=== PATIENT | female | born 1970 | race Caucasian/White ===

== ENCOUNTER → 2017-06-21 | Outpatient (CLI) | payer OTHER ==
[~2017-06-21] MED LIST: ALBU90OI; ASPI325; AZIT250 PO; Ambien10 MG PO; BENZ100A PO; CEPH500 PO; DULERA 200 MCG/13 GM INH; ERGO50000 PO; FLUO20; FLUO20 PO; FLUT220OIA; FURO20 PO; HINGED KNEE SUPPORT; HYDACE5; HYDACE5 PO; HYDCHL25 PO; HYDGUAL120 PO; IBUP600 PO; IBUP800; IBUP800 PO; INDO50 PO; LEVFLO500 PO; LISI20; Lasix20 MG PO; METH5; MUPI2TO TOP; NAPR500 PO; Naprosyn500 MG PO; OMEP40CA12 PO; ONDA4ODT MM; PHENA200 PO; PIOG15; PIRO20; POTA10T PO; PRED20 PO; PROACE100; Prozac20 MG PO; Prozac40 MG PO; RANI150 PO; RXHYDGUAS PO; RXPHEN200 PO; RXPROM25 PO; RXSULTRIDS PO; SULTRIDS PO; ZOLP10 PO; Zantac150 MG PO
== END | disposition home or self-care (01) ==
LOC: LAB SHORT 11:25 → LAB 11:25
DX: N39.0 Urinary tract infection, site not specified (principal)
CPT/HCPCS: 87077; 87086; 87186

== ENCOUNTER → 2017-09-24 | Outpatient (CLI) | payer OTHER ==
[2017-09-24 10:17] LABS: Source, Urine Clean Catch
[2017-09-24 13:11] LABS: Appearance, Urine Cloudy (Clear); Bilirubin, Urine Neg (Neg); Blood, Urine 5+ (Neg); Color, Urine Yellow (P-Yellow); Glucose Qualitative, Urine Neg (Neg); Ketones, Urine Neg (Neg); Leukocyte Esterase, Urine 2+ (Neg); Nitrite, Urine Neg (Neg); Protein, Urine 1+ (Neg); Urobilinogen, Urine NORM (Normal)
[2017-09-24 13:28] LABS: Bacteria Many /hpf; Red Blood Cells, Urine TNTC /hpf (0-2); Squamous Epithelial Cells Mod /hpf (Few); Triple Phosphate Crystals Few /hpf; White Blood Cells, Urine TNTC /hpf (0-5)
== END ==
LOC: LAB SHORT 10:14 → LAB 10:14
PROVIDERS: Registered Nurse
DX: M54.9 Dorsalgia, unspecified (principal); N39.0 Urinary tract infection, site not specified
CPT/HCPCS: 81001; 87077; 87086; 87186

== ENCOUNTER 2017-11-10 12:47 | Emergency (ER) | payer OTHER ==
[~2017-11-10] VITALS: Ht 152.4 cm; Wt 124.7 kg
[2017-11-10 13:41] LABS: Source, Urine Clean Catch
[2017-11-10 13:45] LABS: BASOPHILS ABSOLUTE AUTO 0.02 K/mm3 (0.00-0.23); BASOPHILS PERCENT AUTO 0 % (0-2); EOSINOPHILS ABSOLUTE AUTO 0.01 K/mm3 (0.00-0.68); EOSINOPHILS PERCENT AUTO 0 % (0-6); Hematocrit 38.7 % (33.0-51.0); Hemoglobin 12.7 g/dL (11.5-16.0); IMMATURE GRAN ABSOLUTE AUTO 0.09 K/mm3 (0.00-0.10); IMMATURE GRAN PERCENT AUTO 1 % (0-1); LYMPHOCYTES ABSOLUTE AUTO 0.59 K/mm3 (0.84-5.20); LYMPHOCYTES PERCENT AUTO 3 % (21-46); MONOCYTES ABSOLUTE AUTO 1.53 K/mm3 (0.16-1.47); MONOCYTES PERCENT AUTO 8 % (4-13); Mean Corpuscular HGB Conc 32.8 g/dL (31.5-36.5); Mean Corpuscular Volume 91 fL (80-100); Mean Platelet Volume 10.3 fL (9.1-12.4); NEUTROPHILS ABSOLUTE AUTO 16.59 K/mm3 (1.96-9.15); NEUTROPHILS PERCENT AUTO 88 % (41-73); Platelet Count 256 K/mm3 (150-400); RDW Coefficient Variation 13.7 % (11.7-14.2); RDW Standard Deviation 46.2 fL (35.1-46.3); Red Blood Cell Count 4.24 M/mm3 (3.80-5.20); White Blood Cell Count 18.83 K/mm3 (4.00-11.30)
[2017-11-10 13:46] LABS: Appearance, Urine Cloudy (Clear); Bilirubin, Urine Neg (Neg); Blood, Urine 4+ (Neg); Color, Urine Yellow (P-Yellow); Glucose Qualitative, Urine Neg (Neg); Ketones, Urine Neg (Neg); Leukocyte Esterase, Urine 3+ (Neg); Nitrite, Urine Pos (Neg); Protein, Urine 2+ (Neg); Urobilinogen, Urine 1+ (Normal)
[2017-11-10 14:01] LABS: Alanine Aminotransfer (ALT/SGP 22 U/L (12-78); Albumin, Blood 3.4 g/dL (3.4-5.0); Albumin/Globulin Ratio 0.8 (0.8-1.8); Alk Phos 130 U/L (50-136); Anion Gap 12 mmol/L (6-16); Aspartate Aminotrans (AST/SGOT 15 U/L (12-37); Bilirubin, Total 0.6 mg/dL (0.1-1.0); Blood Urea Nitrogen 9 mg/dL (8-24); Bun/Creatinine Ratio 12.2 (12.0-20.0); CO2, Blood 21 mmol/L (21-32); Calcium, Blood 8.4 mg/dL (8.5-10.1); Chloride, Blood 101 mmol/L (98-108); Creatinine, Blood 0.74 mg/dL (0.40-1.00); Globulin, Blood 4.5 g/dL (2.2-4.0); Glomerular Filtration Rate >60 (60-); Glucose, Blood 111 mg/dL (70-99); Potassium, Blood 3.2 mmol/L (3.5-5.5); Sodium, Blood 134 mmol/L (136-145); Total Protein, Blood 7.9 g/dL (6.4-8.2)
[2017-11-10 14:01] LABS: Bacteria Many /hpf; Squamous Epithelial Cells Many /hpf (Few); White Blood Cells, Urine TNTC /hpf (0-5)
[2017-11-10] MEDS ORDERED: MELO7.5 (14:17)
[2017-11-10] MEDS ORDERED: FOLI400 PO (14:17)
[2017-11-10] MEDS ORDERED: BUDE6HFA INH (14:17)
[2017-11-10] MEDS ORDERED: Ventolin/Prove6.7 GM INH (14:18)
[2017-11-10] MEDS ORDERED: Prednisone20 MG PO (16:07)
== END 2017-11-10 16:12 | disposition home or self-care (01) ==
LOC: ER 12:47
PROVIDERS: Internal Medicine
DX: J45.901 Unspecified asthma with (acute) exacerbation (principal); I10 Essential (primary) hypertension; F32.9 Major depressive disorder, single episode, unspecified; J44.9 Chronic obstructive pulmonary disease, unspecified; F17.200 Nicotine dependence, unspecified, uncomplicated; Z79.899 Other long term (current) drug therapy
CPT/HCPCS: 36415; 71046; 80053; 81001; 85025; 87077; 87086; 87186; 94640; 94644; 96374; 99284-25; J2930

== ENCOUNTER → 2018-05-12 | Outpatient (CLI) | payer OTHER ==
[~2018-05-12] MED LIST changes: +BUDE6HFA INH; +FOLI400 PO; +MELO7.5; +Prednisone20 MG PO; +Ventolin/Prove6.7 GM INH
[2018-05-13 09:31] LABS: Candida species (DNA Probe) Negative (NEGATIVE); G. vaginalis (DNA Probe) Positive (NEGATIVE); T. vaginalis (DNA Probe) Positive (NEGATIVE)
[2018-05-14 14:08] LABS: HPV 16 Negative (Negative); HPV 18 Negative (Negative); HPV OTHER HR TYPES Negative (Negative)
== END ==
LOC: LAB SHORT 13:26 → LAB 13:26
PROVIDERS: Nurse Practitioner Family
DX: Z01.411 Encounter for gynecological examination (general) (routine) with abnormal findings (principal); Z12.4 Encounter for screening for malignant neoplasm of cervix; N89.8 Other specified noninflammatory disorders of vagina
CPT/HCPCS: 87480; 87510; 87624; 87660; G0145

== ENCOUNTER → 2018-07-28 | Outpatient (CLI) | payer OTHER ==
[2018-07-28 18:30] LABS: Source, Urine Voided
[2018-07-28 18:56] LABS: Appearance, Urine Cloudy (Clear); Bilirubin, Urine Neg (Neg); Blood, Urine 4+ (Neg); Color, Urine Yellow (P-Yellow); Glucose Qualitative, Urine Neg (Neg); Ketones, Urine Neg (Neg); Leukocyte Esterase, Urine 3+ (Neg); Nitrite, Urine Neg (Neg); Protein, Urine 1+ (Neg); Specific Gravity, Urine 1.015 (1.003-1.022); Urobilinogen, Urine NORM (Normal)
[2018-07-28 19:09] LABS: Bacteria Many /hpf; Red Blood Cells, Urine 0-2 /hpf (0-2); Squamous Epithelial Cells Few /hpf (Few)
== END ==
LOC: LAB SHORT 18:28 → LAB 18:28
PROVIDERS: Nurse Practitioner Family
DX: R82.90 Unspecified abnormal findings in urine (principal)
CPT/HCPCS: 81001; 87077; 87086; 87186

== ENCOUNTER → 2019-07-21 | Outpatient (CLI) | payer OTHER ==
[~2019-07-21] MED LIST changes: +FUROSEMIDE20 MG PO; +FUROSEMIDE40 MG PO; +VITAMIN D3125 MCG
[2019-07-21 17:34] LABS: Bilirubin, Urine Neg (Neg); Blood, Urine 3+ (Neg); Glucose Qualitative, Urine Neg (Neg); Ketones, Urine Neg (Neg); Leukocyte Esterase, Urine 3+ (Neg); Nitrite, Urine Pos (Neg); Protein, Urine Neg (Neg); Specific Gravity, Urine 1.015 (1.003-1.022); Urobilinogen, Urine NORM (Normal); pH, Urine 6.5 (5.0-8.0)
[2019-07-21 18:00] LABS: Appearance, Urine Hazy (Clear); Color, Urine Yellow (P-Yellow)
[2019-07-21 18:02] LABS: Bacteria Many /hpf; Squamous Epithelial Cells Mod /hpf (Few)
== END | disposition home or self-care (01) ==
LOC: LAB SHORT 17:28 → LAB 17:28
PROVIDERS: Nurse Practitioner Family
DX: N39.0 Urinary tract infection, site not specified (principal)
CPT/HCPCS: 81001; 87077; 87086; 87186

== ENCOUNTER → 2019-11-26 | Outpatient (CLI) | payer OTHER | END | disposition home or self-care (01) | LOC: LAB 17:28 → LAB SHORT 17:28 | DX: N30.00 Acute cystitis without hematuria (principal) | CPT/HCPCS: 87077; 87086; 87186 ==

== ENCOUNTER → 2020-03-02 | Outpatient (CLI) | payer OTHER ==
[2020-03-02 08:27] LABS: Source, Urine Clean Catch
[2020-03-02 12:26] LABS: Appearance, Urine Hazy (Clear); Bilirubin, Urine Neg (Neg); Blood, Urine Neg (Neg); Color, Urine Yellow (P-Yellow); Glucose Qualitative, Urine Neg (Neg); Ketones, Urine Neg (Neg); Leukocyte Esterase, Urine 1+ (Neg); Nitrite, Urine Pos (Neg); Protein, Urine 1+ (Neg); Urobilinogen, Urine 1+ (Normal)
[2020-03-02 12:40] LABS: Red Blood Cells, Urine 0-2 /hpf (0-2)
[2020-03-02 12:41] LABS: Amorphous Heavy (0-Heavy); Bacteria Many /hpf; Squamous Epithelial Cells Few /hpf (Few); Triple Phosphate Crystals Mod /hpf; Yeast/Fungi Urine Few /hpf
== END | disposition home or self-care (01) ==
LOC: LAB 08:12
PROVIDERS: Student in an Organized Health Care Education/Training Program
DX: R35.0 Frequency of micturition (principal)
CPT/HCPCS: 81001; 87077; 87086; 87186

== ENCOUNTER → 2020-06-20 | Outpatient (CLI) | payer OTHER | END | disposition home or self-care (01) | LOC: LAB SHORT 11:00 → LAB 11:00 | DX: R30.0 Dysuria (principal) | CPT/HCPCS: 87077; 87086; 87186 ==

== ENCOUNTER → 2020-12-08 | Outpatient (CLI) | payer OTHER | END | disposition home or self-care (01) | LOC: LAB 09:00 → LAB SHORT 09:00 | DX: N30.00 Acute cystitis without hematuria (principal) | CPT/HCPCS: 87077; 87086; 87186 ==

== ENCOUNTER → 2021-01-30 | Outpatient (CLI) | payer OTHER | END | disposition home or self-care (01) | LOC: LAB 11:50 → LAB SHORT 11:50 | DX: R30.0 Dysuria (principal) | CPT/HCPCS: 87077; 87086; 87186 ==

== ENCOUNTER 2022-05-27 21:26 | Emergency (ER) | payer OTHER ==
[~2022-05-27] VITALS: Ht 152.4 cm; Wt 158.8 kg
[~2022-05-27 21:26] MED LIST changes: +NITR100CA PO
[2022-05-27 23:19] LABS: BASOPHILS ABSOLUTE AUTO 0.04 K/mm3 (0.00-0.23); BASOPHILS PERCENT AUTO 0 % (0-2); EOSINOPHILS ABSOLUTE AUTO 0.13 K/mm3 (0.00-0.68); EOSINOPHILS PERCENT AUTO 1 % (0-6); Hematocrit 37.1 % (33.0-51.0); Hemoglobin 11.9 g/dL (11.5-16.0); IMMATURE GRAN ABSOLUTE AUTO 0.05 K/mm3 (0.00-0.10); IMMATURE GRAN PERCENT AUTO 0 % (0-1); LYMPHOCYTES ABSOLUTE AUTO 1.28 K/mm3 (0.84-5.20); LYMPHOCYTES PERCENT AUTO 10 % (21-46); MONOCYTES ABSOLUTE AUTO 1.14 K/mm3 (0.16-1.47); MONOCYTES PERCENT AUTO 9 % (4-13); Mean Corpuscular HGB 29.7 pg (26.0-34.0); Mean Corpuscular HGB Conc 32.1 g/dL (31.5-36.5); Mean Corpuscular Volume 93 fL (80-100); Mean Platelet Volume 10.5 fL (9.1-12.4); NEUTROPHILS ABSOLUTE AUTO 9.67 K/mm3 (1.96-9.15); NEUTROPHILS PERCENT AUTO 79 % (41-73); Platelet Count 276 K/mm3 (150-400); RDW Coefficient Variation 14.9 % (11.7-14.2); RDW Standard Deviation 51.3 fL (35.1-46.3); Red Blood Cell Count 4.01 M/mm3 (3.80-5.20); White Blood Cell Count 12.31 K/mm3 (4.00-11.30)
[2022-05-27 23:36] LABS: Albumin, Blood 2.8 g/dL (3.4-5.0); Albumin/Globulin Ratio 0.6 (0.8-1.8); Bilirubin, Total 0.9 mg/dL (0.1-1.0); Bun/Creatinine Ratio 12.3 (12.0-20.0); Calcium, Blood 8.7 mg/dL (8.5-10.1); Creatinine, Blood 0.81 mg/dL (0.40-1.00); Globulin, Blood 4.6 g/dL (2.2-4.0); Potassium, Blood 3.9 mmol/L (3.5-5.5); Total Protein, Blood 7.4 g/dL (6.4-8.2)
[2022-05-28] MEDS ORDERED: Cyclobenzaprine5 MG (00:04)
[2022-05-28] MEDS ORDERED: MONT10T PO (00:05)
[2022-05-28] MEDS ORDERED: NEURONTIN300 MG PO (00:05)
[2022-05-28] MEDS ORDERED: OMEP20ER PO (00:05)
[2022-05-28 00:07] LABS: Source, Urine Foley catheter
[2022-05-28 00:15] LABS: Bilirubin, Urine Neg (Neg); Blood, Urine 5+ (Neg); Glucose Qualitative, Urine Neg (Neg); Ketones, Urine Neg (Neg); Leukocyte Esterase, Urine 3+ (Neg); Nitrite, Urine Neg (Neg); Protein, Urine Neg (Neg); Urobilinogen, Urine NORM (Normal)
[2022-05-28 00:21] LABS: Appearance, Urine Hazy (Clear); Color, Urine Yellow (P-Yellow)
[2022-05-28 00:22] LABS: Bacteria Mod /hpf; Red Blood Cells, Urine 0-2 /hpf (0-2); Squamous Epithelial Cells Mod /hpf (Few)
[2022-05-28 00:54] LABS: Influenza A, PCR NEGATIVE (NEGATIVE); Influenza B, PCR NEGATIVE (NEGATIVE); Resp Syncytial Virus, PCR NEGATIVE (NEGATIVE); SARS-Cov-2 (COVID-19) PCR, MMC NEGATIVE (NEGATIVE)
[2022-05-28] MEDS ORDERED: CEPH500 PO (01:54)
== END 2022-05-28 03:33 | disposition home or self-care (01) ==
LOC: ER 21:26
PROVIDERS: Emergency Medicine
DX: N12 Tubulo-interstitial nephritis, not specified as acute or chronic (principal); I10 Essential (primary) hypertension; J44.9 Chronic obstructive pulmonary disease, unspecified; Z87.891 Personal history of nicotine dependence; Z20.822 Contact with and (suspected) exposure to COVID-19; Z79.899 Other long term (current) drug therapy
CPT/HCPCS: 0241U; 36415; 51702; 71045; 80053; 81001; 85025; 87086; 96365; 99284-25; J0696; J7030

== ENCOUNTER 2022-07-29 15:15 | Emergency (ER) | payer OTHER ==
[~2022-07-29] VITALS: Ht 152.4 cm; Wt 158.8 kg
[~2022-07-29 15:15] MED LIST changes: +Cyclobenzaprine5 MG; +MONT10T PO; +NEURONTIN300 MG PO; +OMEP20ER PO
[2022-07-29 15:28] VITALS: BP 156/87
[2022-07-29 16:26] LABS: Source, Urine Foley catheter
[2022-07-29 16:32] LABS: Bilirubin, Urine Neg (Neg); Blood, Urine 5+ (Neg); Glucose Qualitative, Urine Neg (Neg); Ketones, Urine Neg (Neg); Leukocyte Esterase, Urine 3+ (Neg); Nitrite, Urine Pos (Neg); Protein, Urine 3+ (Neg); Specific Gravity, Urine 1.015 (1.003-1.022); Urobilinogen, Urine NORM (Normal)
[2022-07-29] MEDS ORDERED: SULTRIDS PO (16:36)
[2022-07-29] MEDS ORDERED: CEFD300 PO (16:36)
[2022-07-29 16:42] LABS: Appearance, Urine Cloudy (Clear); Color, Urine Pale Yellow (P-Yellow)
[2022-07-29 16:43] LABS: Red Blood Cells, Urine 25-50 /hpf (0-2); White Blood Cells, Urine 50-100 /hpf (0-5)
[2022-07-29 16:44] LABS: Bacteria Many /hpf; Hyaline Casts 0-2 /lpf (0-2); Squamous Epithelial Cells Mod /hpf (Few)
== END 2022-07-29 16:48 | disposition home or self-care (01) ==
LOC: ER 15:15
PROVIDERS: Emergency Medicine
DX: N39.0 Urinary tract infection, site not specified (principal); I10 Essential (primary) hypertension; J44.9 Chronic obstructive pulmonary disease, unspecified; Z79.899 Other long term (current) drug therapy; Z87.891 Personal history of nicotine dependence
CPT/HCPCS: 81001; 87086; 99283; A9270

== ENCOUNTER 2022-08-23 20:27 | Emergency (ER) | payer OTHER ==
[~2022-08-23] VITALS: Ht 152.4 cm; Wt 158.8 kg
[~2022-08-23 20:27] MED LIST changes: +Aspir 8181 MG PO; +BUMETANIDE2 M6 PO; +CEFD300 PO
[2022-08-23 23:45] VITALS: BP 150/72
== END 2022-08-23 23:45 | disposition home or self-care (01) ==
LOC: ER 20:27
DX: T83.031A Leakage of indwelling urethral catheter, initial encounter (principal); J45.909 Unspecified asthma, uncomplicated; I10 Essential (primary) hypertension; Z79.82 Long term (current) use of aspirin; Z79.899 Other long term (current) drug therapy; Z87.891 Personal history of nicotine dependence; X58.XXXA Exposure to other specified factors, initial encounter
CPT/HCPCS: 99283

== ENCOUNTER 2023-07-20 18:08 | Emergency (ER) | payer OTHER ==
[~2023-07-20] VITALS: Ht 152.4 cm; Wt 153.8 kg
[2023-07-20 19:18] VITALS: BP 138/89
== END 2023-07-20 20:50 | disposition home or self-care (01) ==
LOC: ER 18:08
DX: T83.038A Leakage of other urinary catheter, initial encounter (principal); Z79.899 Other long term (current) drug therapy; I10 Essential (primary) hypertension; M19.90 Unspecified osteoarthritis, unspecified site; G47.30 Sleep apnea, unspecified; J44.9 Chronic obstructive pulmonary disease, unspecified; E66.01 Morbid (severe) obesity due to excess calories; Z87.891 Personal history of nicotine dependence
CPT/HCPCS: 51702; 99283-25

== ENCOUNTER 2023-11-23 13:53 | Emergency (ER) | payer OTHER ==
[~2023-11-23] VITALS: Ht 152.4 cm; Wt 155.6 kg
[2023-11-23 14:05] VITALS: BP 157/93
[2023-11-23 16:03] LABS: Source, Urine Foley catheter
[2023-11-23 16:05] LABS: Bilirubin, Urine Neg (Neg); Blood, Urine Neg (Neg); Color, Urine Yellow (P-Yellow); Glucose Qualitative, Urine Neg (Neg); Ketones, Urine Neg (Neg); Leukocyte Esterase, Urine 2+ (Neg); Nitrite, Urine Pos (Neg); Protein, Urine Neg (Neg); Urobilinogen, Urine NORM (Normal)
[2023-11-23 16:11] LABS: Appearance, Urine Hazy (Clear)
[2023-11-23 16:12] LABS: Bacteria Many /hpf; Red Blood Cells, Urine 0-2 /hpf (0-2); Squamous Epithelial Cells Few /hpf (Few)
[2023-11-23 16:13] LABS: Amorphous Light (0-Heavy)
[2023-11-23] MEDS ORDERED: Cefdinir 300 MG Cap PO ONE (16:20)
[2023-11-23] MEDS ORDERED: CEFD300 PO (16:28)
== END 2023-11-23 16:52 | disposition home or self-care (01) ==
LOC: ER 13:53
PROVIDERS: Student in an Organized Health Care Education/Training Program
DX: T83.021A Displacement of indwelling urethral catheter, initial encounter (principal); N39.0 Urinary tract infection, site not specified; Z79.899 Other long term (current) drug therapy; I10 Essential (primary) hypertension; J44.9 Chronic obstructive pulmonary disease, unspecified; G47.30 Sleep apnea, unspecified; E66.01 Morbid (severe) obesity due to excess calories; Z87.891 Personal history of nicotine dependence
CPT/HCPCS: 51702; 81001; 87077; 87086; 87186; 99283-25; A9270

== ENCOUNTER 2024-03-29 15:15 | Emergency (ER) | payer OTHER ==
[~2024-03-29] VITALS: Ht 152.4 cm; Wt 156.5 kg
[2024-03-29 15:34] VITALS: BP 116/73
[2024-03-29 15:59] LABS: Source, Urine Clean Catch
[2024-03-29 16:04] LABS: Appearance, Urine Turbid (Clear); Bilirubin, Urine Neg (Neg); Blood, Urine 5+ (Neg); Color, Urine Yellow (P-Yellow); Glucose Qualitative, Urine Neg (Neg); Ketones, Urine Neg (Neg); Leukocyte Esterase, Urine 3+ (Neg); Nitrite, Urine Neg (Neg); Protein, Urine 3+ (Neg); Urobilinogen, Urine 1+ (Normal)
[2024-03-29 16:12] LABS: Bacteria Many /hpf; Red Blood Cells, Urine 25-50 /hpf (0-2); Squamous Epithelial Cells Many /hpf (Few); White Blood Cells, Urine TNTC /hpf (0-5)
[2024-03-29] MEDS ORDERED: Ciprofloxacin 500 MG Tab PO ONE (17:45)
[2024-03-29] MEDS ORDERED: Ketorolac Tromethamine 15mg Vial IM ONE (17:45)
[2024-03-29] MEDS ORDERED: Acetaminophen 325 MG TABLET PO ONE (17:45)
[2024-03-29] MEDS ORDERED: Cefpodoxime Proxetil 200 MG Tab PO ONE (17:45)
[2024-03-29] MEDS ORDERED: ONDA4ODT MM (19:01)
[2024-03-29] MEDS ORDERED: CIPR500 PO (19:01)
== END 2024-03-29 19:45 | disposition home or self-care (01) ==
LOC: ER 15:15
PROVIDERS: Physician Assistant
DX: N39.0 Urinary tract infection, site not specified (principal); I10 Essential (primary) hypertension; J44.9 Chronic obstructive pulmonary disease, unspecified; Z87.891 Personal history of nicotine dependence; G47.30 Sleep apnea, unspecified; Z79.1 Long term (current) use of non-steroidal anti-inflammatories (NSAID); Z79.899 Other long term (current) drug therapy
CPT/HCPCS: 51702; 81001; 87077; 87086; 87186; 96372; 99283-25; A9270; J1885

== ENCOUNTER → 2024-06-03 | Outpatient (CLI) | payer OTHER ==
[~2024-06-03] MED LIST changes: +CIPR500 PO
[2024-06-03 17:52] LABS: U Amphetamine Screen Not Detected; U Barbituate Screen Not Detected; U Benzodiazapine Screen Not Detected; U Buprenorphine Screen Not Detected; U Cannabinoids Screen Not Detected; U Cocaine Screen Not Detected; U Methadone Screen Not Detected; U Methamphetamine Screen Not Detected; U Opiates Screen Not Detected; U Oxycodone Screen Not Detected; U Phencyclidine Screen Not Detected
[2024-06-07 19:35] LABS: 3-OH-COTININE, URN, QUANT <50 ng/mL; ANABASINE, URN, QUANT <5 ng/mL; COTININE, URN, QUANT <15 ng/mL; NICOTINE, URN, QUANT <15 ng/mL
== END ==
LOC: LAB SHORT 14:15 → LAB 14:15
PROVIDERS: Student in an Organized Health Care Education/Training Program
DX: E66.9 Obesity, unspecified (principal)
CPT/HCPCS: G0480

== ENCOUNTER 2024-08-07 23:00 | Emergency (ER) | payer OTHER ==
[~2024-08-07] VITALS: Ht 152.4 cm; Wt 139.7 kg
[2024-08-07 23:35] LABS: Source, Urine Clean Catch
[2024-08-07 23:37] LABS: Blood, Urine 3+ (Neg); Glucose Qualitative, Urine Neg (Neg); Ketones, Urine 2+ (Neg); Leukocyte Esterase, Urine 3+ (Neg); Nitrite, Urine Pos (Neg); Protein, Urine 3+ (Neg); Urobilinogen, Urine 3+ (Normal)
[2024-08-07 23:56] LABS: BASOPHILS ABSOLUTE AUTO 0.05 K/mm3 (0.00-0.23); BASOPHILS PERCENT AUTO 0 % (0-2); EOSINOPHILS ABSOLUTE AUTO 0.04 K/mm3 (0.00-0.68); EOSINOPHILS PERCENT AUTO 0 % (0-6); Hematocrit 36.3 % (33.0-51.0); Hemoglobin 12.1 g/dL (11.5-16.0); IMMATURE GRAN ABSOLUTE AUTO 0.07 K/mm3 (0.00-0.10); IMMATURE GRAN PERCENT AUTO 1 % (0-1); LYMPHOCYTES ABSOLUTE AUTO 1.41 K/mm3 (0.84-5.20); LYMPHOCYTES PERCENT AUTO 10 % (21-46); MONOCYTES ABSOLUTE AUTO 0.92 K/mm3 (0.16-1.47); MONOCYTES PERCENT AUTO 6 % (4-13); Mean Corpuscular HGB 31.1 pg (26.0-34.0); Mean Corpuscular HGB Conc 33.3 g/dL (31.5-36.5); Mean Corpuscular Volume 93 fL (80-100); Mean Platelet Volume 10.8 fL (9.1-12.4); NEUTROPHILS ABSOLUTE AUTO 11.78 K/mm3 (1.96-9.15); NEUTROPHILS PERCENT AUTO 83 % (41-73); Platelet Count 387 K/mm3 (150-400); RDW Coefficient Variation 14.1 % (11.7-14.2); RDW Standard Deviation 47.9 fL (35.1-46.3); Red Blood Cell Count 3.89 M/mm3 (3.80-5.20); White Blood Cell Count 14.27 K/mm3 (4.00-11.30)
[2024-08-08 00:01] LABS: Bilirubin, Urine 1+ (Neg)
[2024-08-08 00:02] LABS: Appearance, Urine Hazy (Clear); Color, Urine Yellow (P-Yellow)
[2024-08-08 00:03] LABS: Amorphous Mod (0-Heavy); Bacteria Many /hpf; Squamous Epithelial Cells Many /hpf (Few); White Blood Cells, Urine 25-50 /hpf (0-5)
[2024-08-08 00:33] LABS: Albumin/Globulin Ratio 0.4 (0.8-1.8); Bilirubin, Total 1.2 mg/dL (0.1-1.0); Bun/Creatinine Ratio 20.6 (12.0-20.0); Calcium, Blood 8.9 mg/dL (8.5-10.1); Creatinine, Blood 0.68 mg/dL (0.40-1.00); Globulin, Blood 5.5 g/dL (2.2-4.0); Potassium, Blood 2.9 mmol/L (3.5-5.5); Total Protein, Blood 7.5 g/dL (6.4-8.2)
[2024-08-08] MEDS ORDERED: Morphine Sulfate 4 MG/1 ML Injection IV ONE ×2 (01:55→09:30)
[2024-08-08] MEDS ORDERED: Potassium Chloride 40 MEQ in NS 250 ML IV ONE ×2 (02:20→06:55)
[2024-08-08] MEDS ORDERED: NS 1,000 ML IV ONE (02:46)
[2024-08-08 03:32] LABS: Source, Urine Foley catheter
[2024-08-08 03:35] LABS: Blood, Urine 4+ (Neg); Glucose Qualitative, Urine Neg (Neg); Ketones, Urine 3+ (Neg); Leukocyte Esterase, Urine 3+ (Neg); Nitrite, Urine Pos (Neg); Protein, Urine 2+ (Neg); Specific Gravity, Urine 1.005 (1.003-1.022); Urobilinogen, Urine 3+ (Normal)
[2024-08-08 03:59] LABS: Bilirubin, Urine 1+ (Neg)
[2024-08-08 04:00] LABS: Appearance, Urine Turbid (Clear); Color, Urine Yellow (P-Yellow)
[2024-08-08 04:01] LABS: Bacteria Many /hpf; Red Blood Cells, Urine 0-2 /hpf (0-2); Squamous Epithelial Cells Many /hpf (Few); White Blood Cells, Urine 50-100 /hpf (0-5)
[2024-08-08 05:30] VITALS: BP 164/92
[2024-08-08] MEDS ORDERED: NS 1,000 ML IV SCH (06:35)
[2024-08-08] MEDS ORDERED: Piperacillin/Tazobactam Sod 4.5 GM in NS 100 ML IV ONE (06:35)
[2024-08-08] MEDS ORDERED: CefTRIAXone Sodium 1,000 MG in NS 50 ML IV ONE (07:20)
[2024-08-08] MEDS ORDERED: RX Prepack Albuterol 1 PREPACK/6.7 GM INH UD ONE (08:35)
== END 2024-08-08 10:04 | disposition home or self-care (01) ==
LOC: ER 23:00
PROVIDERS: Student in an Organized Health Care Education/Training Program
DX: T81.41XA Infection following a procedure, superficial incisional surgical site, initial encounter (principal); K65.1 Peritoneal abscess; A41.9 Sepsis, unspecified organism; E87.6 Hypokalemia; I10 Essential (primary) hypertension; G47.30 Sleep apnea, unspecified; J44.9 Chronic obstructive pulmonary disease, unspecified; Z98.84 Bariatric surgery status; Z87.891 Personal history of nicotine dependence; Z79.899 Other long term (current) drug therapy
CPT/HCPCS: 36415; 51702; 74177; 80053; 81001; 83605; 83690; 83735; 85025; A9270; J0696; J2270; J2543; J3480; J7030; J7050; Q9963; Q9967

== ENCOUNTER 2024-08-31 03:38 | Day surgery (SDC) | payer OTHER ==
[~2024-08-31 03:38] MED LIST changes: +ALBU90OI INH; -Cyclobenzaprine5 MG; +Cyclobenzaprine5 MG PO; +FAMO20 PO; +ONDA4 PO; +PROM12.5S PR; -Ventolin/Prove6.7 GM INH
[2024-08-31] MEDS ORDERED: Lactated Ringer's 1,000 ML IV SCH (07:15)
[2024-08-31 15:00] VITALS: BP 130/75
[2024-08-31] MEDS ORDERED: ZYRTEC10 M2 PO (15:08)
[2024-08-31] MEDS ORDERED: BLISOVI FE PO (15:09)
[2024-08-31] MEDS ORDERED: PANT40 PO (15:13)
[2024-08-31] MEDS ORDERED: METO10 PO (15:13)
[2024-08-31] MEDS ORDERED: MONT5TCH PO (15:13)
[2024-08-31] MEDS ORDERED: XARELTO20 MG PO (15:14)
[2024-08-31] MEDS ORDERED: URSO300 PO (15:15)
[2024-08-31] MEDS ORDERED: TIOT18 INH (15:15)
== END 2024-08-31 17:05 | disposition home or self-care (01) ==
LOC: ATC 03:38
DX: E86.0 Dehydration (principal); E66.813 Obesity, class 3; J45.909 Unspecified asthma, uncomplicated; J44.9 Chronic obstructive pulmonary disease, unspecified; K21.9 Gastro-esophageal reflux disease without esophagitis; Z68.43 Body mass index [BMI] 50.0-59.9, adult; Z79.01 Long term (current) use of anticoagulants; Z87.891 Personal history of nicotine dependence
CPT/HCPCS: 96360; 96361; J7120

== ENCOUNTER 2024-09-03 00:37 | Day surgery (SDC) | payer OTHER ==
[~2024-09-03 00:37] MED LIST changes: +BLISOVI FE PO; +METO10 PO; +MONT5TCH PO; +PANT40 PO; +TIOT18 INH; +URSO300 PO; +XARELTO20 MG PO; +ZYRTEC10 M2 PO
[2024-09-03] MEDS ORDERED: Lactated Ringer's 1,000 ML IV SCH (07:00)
[2024-09-03 14:48] VITALS: BP 138/98
== END 2024-09-03 17:07 | disposition home or self-care (01) ==
LOC: ATC 00:37
DX: E86.0 Dehydration (principal); J44.89 Other specified chronic obstructive pulmonary disease; I10 Essential (primary) hypertension; K21.9 Gastro-esophageal reflux disease without esophagitis; E66.813 Obesity, class 3; Z68.43 Body mass index [BMI] 50.0-59.9, adult; Z87.891 Personal history of nicotine dependence; Z79.01 Long term (current) use of anticoagulants; Z79.899 Other long term (current) drug therapy
CPT/HCPCS: 96360; 96361; J7120

== ENCOUNTER 2024-09-29 03:24 | Day surgery (SDC) | payer OTHER ==
[~2024-09-29 03:24] MED LIST changes: +Pyridium100 MG PO
[2024-09-29] MEDS ORDERED: Ondansetron HCl 2 MG / ML 2ML Vial IV SCH (06:50)
[2024-09-29 15:17] VITALS: BP 131/89
== END 2024-09-29 17:26 | disposition home or self-care (01) ==
LOC: ATC 03:24
DX: E86.0 Dehydration (principal); J44.89 Other specified chronic obstructive pulmonary disease; I10 Essential (primary) hypertension; K21.9 Gastro-esophageal reflux disease without esophagitis; E66.813 Obesity, class 3; Z68.43 Body mass index [BMI] 50.0-59.9, adult; Z87.891 Personal history of nicotine dependence; Z79.899 Other long term (current) drug therapy
CPT/HCPCS: 96361; 96374; J2405; J7120

== ENCOUNTER 2024-10-01 01:26 | Day surgery (SDC) | payer OTHER ==
[2024-10-01] MEDS ORDERED: Ondansetron HCl 2 MG / ML 2ML Vial IV SCH (07:10)
[2024-10-01 13:22] VITALS: BP 136/87
== END 2024-10-01 15:28 | disposition home or self-care (01) ==
LOC: ATC 01:26
DX: E86.0 Dehydration (principal); M19.90 Unspecified osteoarthritis, unspecified site; J44.89 Other specified chronic obstructive pulmonary disease; K21.9 Gastro-esophageal reflux disease without esophagitis; I10 Essential (primary) hypertension; E66.813 Obesity, class 3; Z68.43 Body mass index [BMI] 50.0-59.9, adult; Z87.891 Personal history of nicotine dependence; Z79.01 Long term (current) use of anticoagulants; Z79.899 Other long term (current) drug therapy
CPT/HCPCS: 96361; 96374; J2405; J7120

== ENCOUNTER 2024-10-06 01:12 | Day surgery (SDC) | payer OTHER ==
[2024-10-06] MEDS ORDERED: Ondansetron HCl 2 MG / ML 2ML Vial IV SCH (06:50)
[2024-10-06 13:53] VITALS: BP 155/97
== END 2024-10-06 16:21 | disposition home or self-care (01) ==
LOC: ATC 01:12
DX: E86.0 Dehydration (principal); J44.89 Other specified chronic obstructive pulmonary disease; K21.9 Gastro-esophageal reflux disease without esophagitis; I10 Essential (primary) hypertension; E66.813 Obesity, class 3; Z68.43 Body mass index [BMI] 50.0-59.9, adult; Z87.891 Personal history of nicotine dependence; Z79.899 Other long term (current) drug therapy
CPT/HCPCS: 96361; 96374; J2405; J7120

== ENCOUNTER 2024-10-08 01:57 | Day surgery (SDC) | payer OTHER ==
[2024-10-08] MEDS ORDERED: Ondansetron HCl 2 MG / ML 2ML Vial IV SCH (06:55)
[2024-10-08 14:51] VITALS: BP 132/95
== END 2024-10-08 17:01 | disposition home or self-care (01) ==
LOC: ATC 01:57
DX: E86.0 Dehydration (principal); E66.813 Obesity, class 3; Z68.43 Body mass index [BMI] 50.0-59.9, adult; J44.89 Other specified chronic obstructive pulmonary disease; I10 Essential (primary) hypertension; K21.9 Gastro-esophageal reflux disease without esophagitis; Z87.891 Personal history of nicotine dependence; Z79.899 Other long term (current) drug therapy; Z79.01 Long term (current) use of anticoagulants
CPT/HCPCS: 96361; 96374; J2405; J7120

== ENCOUNTER 2024-10-12 00:47 | Day surgery (SDC) | payer OTHER ==
[2024-10-12] MEDS ORDERED: Ondansetron HCl 2 MG / ML 2ML Vial IV SCH (13:10)
[2024-10-12 13:27] VITALS: BP 154/82
== END 2024-10-12 15:45 | disposition home or self-care (01) ==
LOC: ATC 00:47
DX: E86.0 Dehydration (principal); G89.18 Other acute postprocedural pain; M19.90 Unspecified osteoarthritis, unspecified site; J44.89 Other specified chronic obstructive pulmonary disease; K21.9 Gastro-esophageal reflux disease without esophagitis; I10 Essential (primary) hypertension; E66.813 Obesity, class 3; Z68.43 Body mass index [BMI] 50.0-59.9, adult; Z87.891 Personal history of nicotine dependence; Z79.01 Long term (current) use of anticoagulants; Z79.899 Other long term (current) drug therapy
CPT/HCPCS: 96361; 96374; J2405; J7120

== ENCOUNTER 2024-11-07 15:37 | Emergency (ER) | payer OTHER ==
[~2024-11-07] VITALS: Ht 160 cm; Wt 95.2 kg
[2024-11-07 16:01] LABS: Source, Urine Foley catheter
[2024-11-07 16:11] LABS: Bilirubin, Urine Neg (Neg); Color, Urine Yellow (P-Yellow); Glucose Qualitative, Urine Neg (Neg); Ketones, Urine Neg (Neg); Leukocyte Esterase, Urine 1+ (Neg); Protein, Urine 1+ (Neg); Specific Gravity, Urine 1.010 (1.003-1.022); Urobilinogen, Urine NORM (Normal)
[2024-11-07 17:00] VITALS: BP 159/96
== END 2024-11-07 17:15 | disposition home or self-care (01) ==
LOC: ER 15:37
PROVIDERS: Student in an Organized Health Care Education/Training Program
DX: T83.091A Other mechanical complication of indwelling urethral catheter, initial encounter (principal); Z99.89 Dependence on other enabling machines and devices; Z79.899 Other long term (current) drug therapy; Z79.01 Long term (current) use of anticoagulants; Z79.2 Long term (current) use of antibiotics; I10 Essential (primary) hypertension; M19.90 Unspecified osteoarthritis, unspecified site; J44.9 Chronic obstructive pulmonary disease, unspecified; Z87.891 Personal history of nicotine dependence
CPT/HCPCS: 51702; 81001; 87077; 87086; 87186; 99283-25

== ENCOUNTER 2024-11-30 12:07 | Emergency (ER) | payer OTHER ==
[~2024-11-30] VITALS: Ht 152.4 cm; Wt 103.0 kg
[2024-11-30 12:55] VITALS: BP 119/107
[2024-11-30 13:32] LABS: Source, Urine Clean Catch
[2024-11-30 13:38] LABS: Color, Urine Amber (P-Yellow); Glucose Qualitative, Urine Neg (Neg); Ketones, Urine 3+ (Neg); Leukocyte Esterase, Urine 3+ (Neg); Protein, Urine 3+ (Neg); Specific Gravity, Urine 1.010 (1.003-1.022); Urobilinogen, Urine 2+ (Normal)
[2024-11-30 13:47] LABS: Bilirubin, Urine 1+ (Neg); Red Blood Cells, Urine 25-50 /hpf (0-2); White Blood Cells, Urine 25-50 /hpf (0-5)
== END 2024-11-30 14:10 | disposition home or self-care (01) ==
LOC: ER 12:07
PROVIDERS: Student in an Organized Health Care Education/Training Program
DX: T83.510A Infection and inflammatory reaction due to cystostomy catheter, initial encounter (principal); N39.0 Urinary tract infection, site not specified; R31.9 Hematuria, unspecified; I10 Essential (primary) hypertension; G47.30 Sleep apnea, unspecified; J44.9 Chronic obstructive pulmonary disease, unspecified; E66.01 Morbid (severe) obesity due to excess calories; Z68.41 Body mass index [BMI] 40.0-44.9, adult; Z87.891 Personal history of nicotine dependence; Z79.01 Long term (current) use of anticoagulants; Z79.899 Other long term (current) drug therapy
CPT/HCPCS: 51702; 81001; 87077; 87086; 87186; 99283-25

== ENCOUNTER 2024-12-25 12:47 | Emergency (ER) | payer OTHER ==
[~2024-12-25] VITALS: Ht 165.1 cm; Wt 103.0 kg
[2024-12-25 16:04] LABS: Source, Urine Straight Cath
[2024-12-25 16:12] LABS: Color, Urine Yellow (P-Yellow); Glucose Qualitative, Urine Neg (Neg); Ketones, Urine 1+ (Neg); Leukocyte Esterase, Urine 3+ (Neg); Protein, Urine 2+ (Neg); Specific Gravity, Urine 1.010 (1.003-1.022); Urobilinogen, Urine 3+ (Normal)
[2024-12-25 17:33] LABS: Bilirubin, Urine 1+ (Neg)
[2024-12-25 17:35] LABS: Red Blood Cells, Urine 0-2 /hpf (0-2); White Blood Cells, Urine TNTC /hpf (0-5)
[2024-12-25] MEDS ORDERED: CEFU250T47 PO (18:04)
[2024-12-25 18:30] VITALS: BP 135/90
== END 2024-12-25 18:34 | disposition home or self-care (01) ==
LOC: ER 12:47
PROVIDERS: Emergency Medicine
DX: N30.90 Cystitis, unspecified without hematuria (principal); I10 Essential (primary) hypertension; J44.9 Chronic obstructive pulmonary disease, unspecified; G47.30 Sleep apnea, unspecified; Z46.82 Encounter for fitting and adjustment of non-vascular catheter; Z87.891 Personal history of nicotine dependence; Z79.899 Other long term (current) drug therapy
CPT/HCPCS: 51702; 81001; 87077; 87086; 87186; 99283-25; A9270

== ENCOUNTER 2025-03-07 16:55 | Inpatient (IN) | payer OTHER ==
[~2025-03-07] VITALS: Ht 152.4 cm; Wt 88.1 kg
[~2025-03-07 16:55] MED LIST changes: -BLISOVI FE PO; +CEFU250T47 PO; -Cyclobenzaprine5 MG PO; -MELO7.5; -NEURONTIN300 MG PO; -VITAMIN D3125 MCG; +VITAMIN D5000 UNIT PO
[2025-03-07 17:43] LABS: BASOPHILS ABSOLUTE AUTO 0.07 K/mm3 (0.00-0.23); BASOPHILS PERCENT AUTO 1 % (0-2); EOSINOPHILS ABSOLUTE AUTO 0.17 K/mm3 (0.00-0.68); EOSINOPHILS PERCENT AUTO 2 % (0-6); Hematocrit 46.1 % (33.0-51.0); Hemoglobin 16.3 g/dL (11.5-16.0); IMMATURE GRAN ABSOLUTE AUTO 0.02 K/mm3 (0.00-0.10); IMMATURE GRAN PERCENT AUTO 0 % (0-1); LYMPHOCYTES ABSOLUTE AUTO 2.42 K/mm3 (0.84-5.20); LYMPHOCYTES PERCENT AUTO 24 % (21-46); MONOCYTES ABSOLUTE AUTO 0.71 K/mm3 (0.16-1.47); MONOCYTES PERCENT AUTO 7 % (4-13); Mean Corpuscular HGB Conc 35.4 g/dL (31.5-36.5); Mean Corpuscular Volume 92 fL (80-100); NEUTROPHILS ABSOLUTE AUTO 6.53 K/mm3 (1.96-9.15); NEUTROPHILS PERCENT AUTO 66 % (41-73); NRBC ABSOLUTE 0.00 K/mm3 (0.00-0.02); NRBC Auto 0.0 /100 WBC (0.0-0.2); Platelet Count 388 K/mm3 (150-400); RDW Coefficient Variation 12.6 % (11.7-14.2); RDW Standard Deviation 42.5 fL (35.1-46.3)
[2025-03-07 17:58] LABS: Alanine Aminotransfer (ALT/SGP 18.0 U/L (12-78); Albumin, Blood 3.6 g/dL (3.4-5.0); Albumin/Globulin Ratio 0.8 (0.8-1.8); Anion Gap 8.0 mmol/L (3-11); Aspartate Aminotrans (AST/SGOT 14.0 U/L (12-37); Bilirubin, Total 1.1 mg/dL (0.1-1.0); Blood Urea Nitrogen 9.0 mg/dL (8-24); CO2, Blood 37.0 mmol/L (21-32); Calcium, Blood 9.2 mg/dL (8.5-10.1); Chloride, Blood 90.0 mmol/L (98-108); Creatinine, Blood 1.01 mg/dL (0.40-1.00); Globulin, Blood 4.4 g/dL (2.2-4.0); Glucose, Blood 101.0 mg/dL (70-99); Potassium, Blood 2.1 mmol/L (3.5-5.5); Sodium, Blood 133.0 mmol/L (136-145); Total Protein, Blood 8.0 g/dL (6.4-8.2)
[2025-03-07] MEDS ORDERED: NS 1,000 ML IV SCH ×2 (20:25→21:30)
[2025-03-07] MEDS ORDERED: Ondansetron HCl 2 MG / ML 2ML Vial IV PRN (21:30)
[2025-03-07] MEDS ORDERED: FLU VACC TS2025-26(6MOS UP)/PF 45 MCG/0.5 ML SYRINGE IM SCH (21:30)
[2025-03-07] MEDS ORDERED: Albuterol 2.5 MG/3 ML VIAL INH PRN (21:35)
[2025-03-07] MEDS ORDERED: NS 500 ML IV ONE (22:00)
[2025-03-07 22:32] LABS: Source, Urine Foley catheter
[2025-03-07 22:52] LABS: Bilirubin, Urine 1+ (Neg); Color, Urine Amber (P-Yellow); Glucose Qualitative, Urine Neg (Neg); Ketones, Urine Neg (Neg); Leukocyte Esterase, Urine 3+ (Neg); Protein, Urine 2+ (Neg); Specific Gravity, Urine 1.010 (1.003-1.022); Urobilinogen, Urine 3+ (Normal)
[2025-03-08 00:39] VITALS: BP 110/67
[2025-03-08 02:29] LABS: pH Blood Venous 7.36 (7.34-7.37)
[2025-03-08 04:27] VITALS: BP 120/80
--- NOTE | 2025-03-08 04:36 | NUR ---
55-year-old, female patient with PMH of s/p bypass surgery in July w/chronic n/v, COPD, obstructive sleep apmea with C-pap in place, HTN, daily diuretic use was admitted from ED to medical with complain of gerneralized weakness and malfaunctioning urinary catheter. Her initial lab indicated K level was 2.1, Na was 133, bicarb was 37 and GFR was 66. Prior to coming to the unit, she had received a bag of 40 meq KCl and 1L of NaCl. Patient arrived in [facility], accompanied by an E staff, alert and oriented and spoke clearly to the assigned nurse. Patient denied sob, chest pain, n/v, f/c, dizziness, headache and any pain. Vitals were within norm and charted in the system. Another lab was drawn as provider requested. Admission process was done, oriented patient to the unit and her room, and C-PAP was placed by RT. Currently, patient is on telemetry, running NSR, and KCl 40meq and NaCl are running per provider's order. Currently, patient is sleeping and there is no sign of distress and acute changes noted.
[2025-03-08 06:34] LABS: Anion Gap 9.0 mmol/L (3-11); Blood Urea Nitrogen 9.0 mg/dL (8-24); CO2, Blood 31.0 mmol/L (21-32); Calcium, Blood 8.5 mg/dL (8.5-10.1); Chloride, Blood 97.0 mmol/L (98-108); Creatinine, Blood 0.83 mg/dL (0.40-1.00); Glucose, Blood 86.0 mg/dL (70-99); Potassium, Blood 2.4 mmol/L (3.5-5.5); Sodium, Blood 135.0 mmol/L (136-145)
[2025-03-08 07:21] VITALS: BP 108/74
[2025-03-08] MEDS ORDERED: Enoxaparin 40 MG/0.4 ML SYR SC SCH (09:00)
[2025-03-08 11:13] VITALS: BP 112/61
[2025-03-08 11:35] LABS: Magnesium, Blood 1.5 mg/dL (1.6-2.4); Potassium, Blood 2.7 mmol/L (3.5-5.5)
[2025-03-08] MEDS ORDERED: Magnesium Sulf 2 GM/Water 50ML 50 ML IV ONE (13:10)
--- NOTE | 2025-03-08 17:06 | NUR ---
SHIFT SUMMARY PT AOX4, COOPERATIVE, ABLE TO MAKE NEEDS KNOWN. PT IS 1 PERSON ASSIST TO COMMODE, DID HAVE BM THIS SHIFT. BELLO INTACT AND DRAINING TO GRAVITY. TOLERATING MEDICATIONS. DOES REPORT NAUSEA THROUGHOUT SHIFT, MEDICATING PER EMAR. BED IN LOWEST POSITION, CALL LIGHT WITHIN REACH.
[2025-03-08] MEDS ORDERED: Naproxen375 MG PO (17:55)
[2025-03-08] MEDS ORDERED: Cyclobenzaprine5 MG PO (17:58)
[2025-03-08] MEDS ORDERED: NEURONTIN300 MG PO (17:59)
[2025-03-08] MEDS ORDERED: MELO7.5 PO (18:00)
[2025-03-08] MEDS ORDERED: AUROVELA FE PO (18:03)
[2025-03-08 19:30] VITALS: BP 104/63
[2025-03-09 00:24] VITALS: BP 115/63
[2025-03-09 04:35] VITALS: BP 106/60
--- NOTE | 2025-03-09 05:58 | NUR ---
Shift Summary No acute changes. Pt still rcving NS @ 150 ml/hr as ordered. Lynch catheter in place, patent. No c/o of pain or nausea. Pt was on CPAP while asleep at night. Cont. O2 monitor in place, no events. Pt is AOx4, remained in bed t/o the night.
[2025-03-09 06:20] LABS: Anion Gap 6.0 mmol/L (3-11); Blood Urea Nitrogen 10.0 mg/dL (8-24); CO2, Blood 30.0 mmol/L (21-32); Calcium, Blood 8.0 mg/dL (8.5-10.1); Chloride, Blood 105.0 mmol/L (98-108); Creatinine, Blood 0.78 mg/dL (0.40-1.00); Glucose, Blood 103.0 mg/dL (70-99); Magnesium, Blood 2.2 mg/dL (1.6-2.4); Potassium, Blood 2.9 mmol/L (3.5-5.5); Sodium, Blood 138.0 mmol/L (136-145)
[2025-03-09 07:45] VITALS: BP 110/61
[2025-03-09 11:21] VITALS: BP 108/58
[2025-03-09 16:12] VITALS: BP 114/62
[2025-03-09] MEDS ORDERED: K-TAB ER20 ME1 PO (17:48)
--- NOTE | 2025-03-09 19:18 | NUR ---
DISCHARGE NOTE- PT WAS GIVEN VERBAL AND WRITTEN DISCHARGE INSTRUCTIONS AND ACKNOWLEDGED UNDERSTANDING OF THEM, IV AND TELE DC'D. PT SITTING AT THE EOB FULLY DRESSED AND READY TO GO NOW. HER RIDE IS ON HIS WAY AT THIS TIME. REPORT TO NIGHT GEO IBANEZ AT THE BEDSIDE. NO S&S OF DISTRESS NOTED AT THE TIME OF REPORT.
== END 2025-03-09 22:36 | disposition home or self-care (01) | DRG 641 ==
LOC: ER 16:55 → MEDS 16:56
PROVIDERS: Emergency Medicine; Internal Medicine; Nurse Practitioner Acute Care; ADMIT Student in an Organized Health Care Education/Training Program
PROC: 5A09357 Assistance with Respiratory Ventilation, Less than 24 Consecutive Hours, Continuous Positive Airway Pressure (ICD-10-PCS; principal; 2025-03-07)
PROC: 0T2BX0Z Change Drainage Device in Bladder, External Approach (ICD-10-PCS; 2025-03-07)
DX: E87.6 Hypokalemia (principal); N17.9 Acute kidney failure, unspecified; T50.2X5A Adverse effect of carbonic-anhydrase inhibitors, benzothiadiazides and other diuretics, initial encounter; E87.3 Alkalosis; I10 Essential (primary) hypertension; J44.9 Chronic obstructive pulmonary disease, unspecified; F32.A Depression, unspecified; G47.33 Obstructive sleep apnea (adult) (pediatric); E66.01 Morbid (severe) obesity due to excess calories; E87.8 Other disorders of electrolyte and fluid balance, not elsewhere classified; T83.091A Other mechanical complication of indwelling urethral catheter, initial encounter; Y73.2 Prosthetic and other implants, materials and accessory gastroenterology and urology devices associated with adverse incidents; E86.0 Dehydration; E86.1 Hypovolemia; Z98.84 Bariatric surgery status; Z96.82 Presence of neurostimulator; Z68.38 Body mass index [BMI] 38.0-38.9, adult
CPT/HCPCS: 36415; 51702; 80048; 80053; 81001; 82803; 83690; 83735; 84132; 85025; 87086; 94660; 94762; 96365; 96366; 99285-25; A9270; G0378; J1650; J2405; J3475; J3480; J7030; J7040; J7050